=== PATIENT | female | born 1960 | race Caucasian/White ===

== ENCOUNTER 2022-05-27 09:20 | Day surgery (SDC) | payer OTHER ==
[~2022-05-27 09:20] MED LIST: Lactated Ringers 1,000 ML IV SCH; Sodium Chloride 0.9% 10 ML Syringe FLUSH PRN; Sodium Chloride 0.9% 2.5 ML Syringe FLUSH PRN; Sodium Chloride 0.9% 20 ML SDV IV PRN
[2022-05-27] MEDS ORDERED: Propofol 200 MG/20 ML SDV ONE ×2 (09:45→10:39)
[2022-05-27] MEDS ORDERED: Lidocaine 2% 5 ML SDV ONE (09:45)
[2022-05-27] MEDS ORDERED: fentaNYL 100 MCG/2 ML SDV ONE (09:46)
== END 2022-05-27 12:35 | disposition home or self-care (01) ==
LOC: MW.SDS 09:20
PROVIDERS: ATTEND Surgery
DX: Z12.11 Encounter for screening for malignant neoplasm of colon (principal); K63.89 Other specified diseases of intestine; Z83.71 Family history of colonic polyps; E66.9 Obesity, unspecified; F10.20 Alcohol dependence, uncomplicated; Z68.36 Body mass index [BMI] 36.0-36.9, adult; Z79.2 Long term (current) use of antibiotics; Z79.899 Other long term (current) drug therapy; Z87.891 Personal history of nicotine dependence
CPT/HCPCS: 45378; J2704; J3010; J7120; 00812